=== PATIENT | female | born 1980 | race Two or more races ===

== ENCOUNTER 2017-04-17 21:16 | Emergency (ER) | payer OTHER ==
--- NOTE | 2017-04-17 21:35 | ED Physician Documentation ---
PD HPI ABD PAIN - Stated complaint Stated Complaint: PX IN FLANK/BACK/SOA/VOM - Chief complaint Chief Complaint: Abd Pain - History obtained from History obtained from: Patient - History of Present Illness Timing - onset: How many minutes ago (30), Today Timing - duration: Minutes (30) Timing - details: Abrupt onset, Still present Quality: Aching, Sharp, Pain Location: RUQ, Epigastric Radiation: Lower back Improved by: No: Eating (she had dinner soon after onset of the pain and it did not change) Associated symptoms: Nausea, Vomiting (couple of times). No: Fever, Hematemesis , Diarrhea, Weight loss Similar symptoms before: Has not had sx before Recently seen: Not recently seen Review of Systems Constitutional: denies: Fever, Chills, Myalgias Ears: denies: Drainage/discharge Nose: denies: Rhinorrhea / runny nose, Congestion Throat: denies: Sore throat Cardiac: denies: Chest pain / pressure, Palpitations Respiratory: denies: Cough GI: reports: Abdominal Pain, Nausea, Vomiting. denies: Diarrhea : denies: Dysuria, Frequency Skin: denies: Rash, Lesions Neurologic: reports: Generalized weakness. 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 - Past Surgical History Past Surgical History: No - Present Medications Home Medications: Ambulatory Orders Medication Instructions Recorded Confirmed Norethindrone-Ethinyl Estrad 1 each PO DAILY #1 packet 04/06/15 [[facility]] Ondansetron Odt [Zofran] 4 mg TL Q6H PRN #10 tablet 04/06/15 metFORMIN [Glucophage] 1 tab DAILY 04/06/15 04/06/15 Docusate Sodium 100 mg PO DAILY #15 capsule 04/18/17 HYDROcod/ACETAM 5/325 [[place] 5/325] 1 tab PO Q6H PRN #15 tablet 04/18/17 - Allergies Allergies/Adverse Reactions: Allergies Allergy/AdvReac Type Severity Reaction Status Date / Time No Known Drug Allergies Allergy Verified 04/06/15 14:14 - Social History Does the pt smoke?: No Smoking Status: Never smoker Does the pt drink ETOH?: Yes Does the pt have substance abuse?: No - Family History Family history: denies: Aortic aneursym, Aortic dissection PD ED PE NORMAL - Vitals Vital signs reviewed: Yes - General General: Alert and oriented X 3, Well developed/nourished, Other (appears in considerable pain RUQ/epigastric pain.) - HEENT HEENT: PERRL, Pharynx benign - Neck Neck: Supple, no meningeal sign, No adenopathy - Cardiac Cardiac: RRR, No murmur - Respiratory Respiratory: Clear bilaterally - Abdomen Abdomen: Soft, Non distended, No organomegaly, Other (tender epigatric to RUQ area, with guarding and percussion tenderness. ). No: Normal bowel sounds ( slightly increased) - Female Female : Deferred - Rectal Rectal: Deferred - Back Back: No CVA TTP - Derm Derm: Normal color, Warm and dry, No rash - Extremities Extremities: No tenderness to palpate, Normal ROM s pain - Neuro Neuro: Alert and oriented X 3, No motor deficit, Normal speech - Psych Psych: Normal mood Results - Vitals Vitals: Vital Signs - 24 hr 04/17/17 04/17/17 04/17/17 21:25 21:41 23:05 Temperature 36.9 C Heart Rate 68 64 69 Respiratory 18 18 18 Rate Blood Pressure 111/69 107/68 117/54 L O2 Saturation 99 99 98 04/18/17 02:10 Temperature 36.4 C L Heart Rate 61 Respiratory 18 Rate Blood Pressure 102/64 O2 Saturation 98 Oxygen O2 Source Room air - Labs Labs: Laboratory Tests 04/17/17 04/17/17 04/17/17 21:42 21:42 22:06 WBC 14.4 H RBC 4.60 Hgb 13.1 Hct 40.5 MCV 88.0 MCH 28.4 MCHC 32.3 RDW 13.4 Plt Count 301 MPV 9.8 Neut # 9.7 H Lymph # 3.3 Desha # 0.7 Eos # 0.6 Baso # 0.1 Absolute Nucleated RBC 0.00 Nucleated RBC % 0.0 Sodium 137 Potassium 3.8 Chloride 105 Carbon Dioxide 22 Anion Gap 10.0 BUN 15 Creatinine 0.5 Estimated GFR (MDRD) 141 Glucose 140 H Calcium 9.3 Total Bilirubin 0.4 AST 26 ALT 43 Alkaline Phosphatase 104 Total Protein 8.0 Albumin 4.6 Globulin 3.4 Albumin/Globulin Ratio 1.4 Lipase 35 Urine Color YELLOW Urine Clarity CLEAR Urine pH 5.5 Ur Specific [place] >=1.030 H Urine Protein NEGATIVE Urine Glucose (UA) NEGATIVE Urine Ketones TRACE Urine Occult Blood LARGE H Urine Nitrite NEGATIVE Urine Bilirubin NEGATIVE Urine Urobilinogen 0.2 (NORMAL) Ur Leukocyte Esterase NEGATIVE Urine RBC 11-25 H Urine WBC 0-3 Ur Squamous Epith Cells MOD Squamous H Urine Bacteria Few Urine Mucus Marked Strands Ur Microscopic Review INDICATED Urine Culture Comments NOT INDICATED - Rads (name of study) abd RUQ U/S Radiology: Prelim report reviewed (gallbladder polyp, but no stones, normal CBD and wall thickness. ) abd CT Radiology: Prelim report reviewed (no acute process seen), EMP read contemporaneously PD MEDICAL DECISION MAKING - ED course Complexity details: reviewed results, considered differential (no obvious cause based on labs and imaging. Consider GB spasm without stones. She is feeling improved with pain meds here in ED. ), d/w patient Departure - Departure Disposition: 01 Home, Self Care Clinical Impression: Abdominal pain Qualifiers: Abdominal location: right upper quadrant Qualified Code(s): R10.11 - Right upper quadrant pain Condition: Stable Record reviewed to determine appropriate education?: Yes Instructions: ED Abdominal Pain Unkn Cause, ED Abdominal Pain Gallstone Poss Follow-Up: Keon Gamez DO [Primary Care Provider] - Prescriptions: Docusate Sodium 100 mg PO DAILY #15 capsule HYDROcod/ACETAM 5/325 [[place] 5/325] 1 tab PO Q6H PRN #15 tablet PRN Reason: Pain Comments: Your pain and location of it sounded likely to be a gallbladder spasm. The ultrasound appears normal enough. It is possible to have a gallbladder spasm and still appeared normal enough on ultrasound. Your CT scan did not show any other cause apparent. Your blood tests are normal as well with exception of slightly elevated white count that could suggest early infection. Use ondansetron if needed for nausea and Tylenol or hydrocodone if needed for pain. Use a daily stool softener for the next several days so you do not get constipated from the pain medicine. If you feel good into tomorrow and the next day without any continued pain then no follow-up is needed in particular. Follow-up with your primary care if persistent pain over the next couple of days or repeated episodes in the near future. This might suggest the need for other tests of the gallbladder. Return to the ER if worsening pain again, high fevers, bloody stool, repetitive vomiting, other concerns. Discharge Date/Time: 04/18/17 02:15
[2017-04-17] MEDS ORDERED: HYDROmorphone 1 MG/ML SYRINGE IVP STA ×2 (22:00→23:11)
[2017-04-17] MEDS ORDERED: SODIUM CHLORIDE 0.9% 1,000 ML IV ONE (22:00)
[2017-04-17] MEDS ORDERED: ONDANSETRON 4 MG/2 ML VIAL IVP STA (22:00)
[2017-04-17] MEDS ORDERED: MAG HYDROX/AL HYDROX/SIMETH 30 ML UDC PO STA (22:01)
[2017-04-17 22:08] LABS: BASOPHILS # (AUTO) 0.1 10^3/uL (0.0-0.1); BASOPHILS % (AUTO) 0.7 %; EOSINOPHILS # (AUTO) 0.6 10^3/uL (0.0-0.7); EOSINOPHILS % (AUTO) 4.1 %; HGB - HEMOGLOBIN 13.1 g/dL (12.0-16.0); LYMPHOCYTES # (AUTO) 3.3 10^3/uL (1.5-3.5); LYMPHOCYTES % (AUTO) 23.1 %; MEAN CORPUSCULAR HEMOGLOBIN 28.4 pg (27.0-31.0); MEAN CORPUSCULAR HGB CONC 32.3 g/dL (32.0-36.0); MEAN PLATELET VOLUME 9.8 fL (7.9-10.8); MONOCYTES # (AUTO) 0.7 10^3/uL (0.0-1.0); MONOCYTES % (AUTO) 4.5 %; NEUTROPHILS # (AUTO) 9.7 10^3/uL (1.5-6.6); NEUTROPHILS % (AUTO) 67.6 %; PLT - PLATELET COUNT 301 10^3/uL (130-450); RED CELL DISTRIBUTION WIDTH 13.4 % (12.0-15.0); WHITE BLOOD COUNT 14.4 x10^3/uL (4.8-10.8)
[2017-04-17 22:14] LABS: BILIRUBIN,URINE NEGATIVE (NEGATIVE); GLUCOSE, URINE (UA) NEGATIVE (NEGATIVE); KETONES,URINE (UA) TRACE mg/dL (NEGATIVE); LEUKOCYTE ESTERASE, URINE NEGATIVE (NEGATIVE); NITRITE,URINE NEGATIVE (NEGATIVE); OCCULT BLOOD,URINE LARGE (NEGATIVE); PH,URINE 5.5 PH (5.0-7.5); PROTEIN,URINE NEGATIVE (NEGATIVE); UROBILINOGEN,URINE 0.2 (NORMAL) E.U./dL (NORMAL)
[2017-04-17 22:15] LABS: ALBUMIN 4.6 g/dL (3.2-5.5); ALBUMIN/GLOBULIN RATIO 1.4 (1.0-2.2); BILIRUBIN,TOTAL 0.4 mg/dL (0.2-1.0); CALCIUM 9.3 mg/dL (8.5-10.3); CREATININE 0.5 mg/dL (0.4-1.0)
[2017-04-17 22:29] LABS: CLARITY,URINE CLEAR (CLEAR)
[2017-04-17 22:30] LABS: BACTERIA,URINE Few /HPF (None Seen); MUCUS,URINE Marked Strands; SQUAMOUS EPITHELIAL CELL,UR MOD Squamous (<= Few)
[2017-04-17] MEDS ORDERED: KETOROLAC 60 MG/2 ML VIAL IVP STA (23:11)
--- NOTE | 2017-04-17 23:35 | Ultrasound Preliminary Report ---
Exam: US ABDOMEN LIMITED IMPRESSION: 1. Possible gallbladder polyp. No shadowing gallstones or cholecystitis identified. 2. No biliary dilatation. 3. Enlarged fatty liver. [facility] SITE ID: [id number]
--- NOTE | 2017-04-17 23:36 | Ultrasound Report ---
EXAM: ABDOMEN ULTRASOUND LIMITED, RUQ EXAM DATE: 04/17/2017 11:24 PM. CLINICAL HISTORY: RUQ pain onset 3-4 hours ago. COMPARISON: None. TECHNIQUE: Real-time scanning was performed with static images obtained. FINDINGS: Liver: Echogenic and echodense. 20.6 cm. Main portal vein flow: Hepatopetal. Gallbladder: Wall thickness is normal at 1.4 mm. No focal tenderness over the gallbladder. Patient gooden d been medicated. Echogenic nonmobile non-shadowing focus measuring 5.8 x 6.7 mm which could be adher ent sludge ball or polyp. Biliary System: CBD measures 2.7 mm. No intrahepatic or extrahepatic ductal dilatation. Other: Right kidney measures 12.5 cm and appears normal. Inferior vena cava is patent. Visualized por tions of the pancreas are unremarkable. IMPRESSION: 1. Possible gallbladder polyp. No shadowing gallstones or cholecystitis identified. 2. No biliary dilatation. 3. Enlarged fatty liver. [facility] Referring Provider Line: [phone] SITE ID: [id number]
[2017-04-18] MEDS ORDERED: IOPAMIDOL-300 100 ML VIAL ONE (00:04)
[2017-04-18] MEDS ORDERED: IOPAMIDOL-300 100 ML VIAL IVP ONE (00:28)
--- NOTE | 2017-04-18 01:02 | CT Preliminary Report ---
Exam: CT ABDOMEN/PELVIS W/ IMPRESSION: 1. Enlarged fatty liver. 2. Appendix appears normal. No acute inflammatory or obstructive process seen in the abdomen or pelvi s. 3. Mild bibasilar atelectasis or less likely infiltrate. [facility] SITE ID: [id number]
--- NOTE | 2017-04-18 01:02 | CT Report ---
EXAM: CT ABDOMEN AND PELVIS EXAM DATE: 04/18/2017 12:41 AM. CLINICAL HISTORY: Right sided abdominal pain. COMPARISONS: Ultrasound, 04/17/2017. TECHNIQUE: Routine helical CT imaging was performed through the abdomen and pelvis. IV contrast: 100M L ISOVUE 300. Enteric contrast: No. Reconstructions: Coronal and sagittal. In accordance with CT protocol optimization, one or more of the following dose reduction techniques w ere utilized for this exam: automated exposure control, adjustment of mA and/or KV based on patient s ize, or use of iterative reconstructive technique. FINDINGS: Lung Bases: Mild bibasilar atelectasis or infiltrate. Liver: Enlarged at 21 cm. Fatty infiltration. Gallbladder/Bile Ducts: Unremarkable. Spleen: Normal. Pancreas: Normal. Adrenal Glands: Normal. Kidneys: Normal. No masses or hydronephrosis. Peritoneal Cavity/Bowel: No bowel obstruction seen. No diverticulitis. No lymphadenopathy. No free ai r or free fluid. Appendix appears normal. Pelvic Organs: Normal. The bladder and visualized pelvic organs are within normal limits. Vasculature: No aneurysms or other significant abnormality. Bones: No significant abnormality. Other: None. IMPRESSION: 1. Enlarged fatty liver. 2. Appendix appears normal. No acute inflammatory or obstructive process seen in the abdomen or pelvi s. 3. Mild bibasilar atelectasis or less likely infiltrate. [facility] Referring Provider Line: [phone] SITE ID: [id number]
[2017-04-18] MEDS ORDERED: ONDANSETRON 4 MG/2 ML VIAL IVP STA (01:44)
[2017-04-18] MEDS ORDERED: HYDROcod/ACET 5/325 Prepack 6 PO STA (01:44)
[2017-04-18] MEDS ORDERED: ONDANSETRON ODT 4 MG Prepack 2 TL PRN (01:44)
[2017-04-18] MEDS ORDERED: DOCUSATE SODIUM 100 MG CAPSULE PO STA (01:52)
[2017-04-18 02:15] VITALS: BP 102/64
== END 2017-04-18 02:15 | disposition home or self-care (01) ==
LOC: ED 21:16
DX: R10.11 Right upper quadrant pain (principal); E11.9 Type 2 diabetes mellitus without complications; Z79.84 Long term (current) use of oral hypoglycemic drugs
CPT/HCPCS: 36415; 74177; 76705; 80053; 81001; 83690; 85025; 93005; 96374; 96376; 99283; 99284; A9270; J1170; Q9967; 81003; 87086

== ENCOUNTER 2017-04-29 08:48 | Outpatient (CLI) | payer OTHER ==
[2017-04-29] MEDS ORDERED: SINCALIDE 5 MCG VIAL ONE (11:41)
[2017-04-29] MEDS: SINCALIDE 1.7 MCG in SODIUM CHLORIDE 0.9% 50 ML IV ONE (14:11)
--- NOTE | 2017-04-29 14:40 | Nuclear Medicine Report ---
EXAM: HEPATOBILIARY SCAN WITH CCK/KINEVAC ADMINISTRATION EXAM DATE: 04/29/2017 09:30 AM. CLINICAL HISTORY: Abdominal pain COMPARISON: 04/18/2017 CT, 04/17/2017 ultrasound. TECHNIQUE: Following the intravenous administration of 5.1 mCi of Tc99m Mebrofenin, a hepatobiliary s can was done centered on the liver and gallbladder in multiple sequential images and projections. Following the intravenous administration of 1.7 mcg of CCK/ Kinevac over the course of approximately 60 minutes, dynamic imaging was done and the gallbladder ejection fraction was calculated. FINDINGS: Normal extraction of tracer from the blood pool indicating normal hepatocellular function. The liver size and shape is grossly within normal limits. Appearance of tracer in the biliary tree as early as 10 minutes, within normal limits. Appearance of tracer in the gallbladder as early as 10 minutes, within normal limits, with good progr ession of filling throughout the remainder of the initial hour. Appearance of tracer in the small bowel following CCK administration. With CCK administration, the gallbladder demonstrates an effective contraction. The gallbladder eject ion fraction is calculated to be 70%, well above the lower limit of normal of 38% for a 60-minute inj ection. No evidence of enteric reflux into the stomach. No significant collection of tracer remaining in the common bile duct by the end of the study. IMPRESSION: 1. Patent cystic duct. 2. Patent common bile duct. 3. Negative for acute or chronic cholecystitis. 4. No enterogastric bile reflux. 5. Gallbladder ejection fraction of 70%. [facility] Referring Provider Line: [phone] SITE ID: [id number]
== END 2017-04-29 08:49 | disposition home or self-care (01) ==
LOC: DI 08:48
DX: R10.9 Unspecified abdominal pain (principal)
CPT/HCPCS: 78227; A9537; J7040

== ENCOUNTER 2017-08-30 17:03 | Emergency (ER) | payer OTHER ==
[2017-08-30 17:25] VITALS: BP 117/70
[2017-08-30] MEDS ORDERED: HYDROcod/ACETAM 5/325 MG TABLET PO STA (18:29)
--- NOTE | 2017-08-30 18:30 | ED Physician Documentation ---
PD HPI LOWER EXT INJURY - Stated complaint Stated Complaint: THIGH PX - Chief complaint Chief Complaint: Ext Problem - History obtained from History obtained from: Patient - History of Present Illness PD HPI LOW EXT INJURY LOCATION: Left, Other (thigh) Timing - details: Gradual onset Pain level max: 6 Pain level now: 5 Improved by: Rest Worsened by: Moving, Palpating - Additional information Additional information: Patient is a 36-year-old female who presents to the emergency department with a left thigh injury approximately 2 weeks ago while playing kickball. States that she was feeling better so she went and played another game today, reinjuring the left thigh and now having increasing pain on the anterior aspect of the thigh. Took Motrin without relief. 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 - Present Medications Home Medications: Ambulatory Orders Medication Instructions Recorded Confirmed metFORMIN [Glucophage] 500 tab ORAL DAILY 04/06/15 08/30/17 Hydrocodone/Acetaminophen 1 - 2 each PO Q6H PRN #14 tablet 08/30/17 [Hydrocodon-Acetaminophen 5-325] - Allergies Allergies/Adverse Reactions: Allergies Allergy/AdvReac Type Severity Reaction Status Date / Time No Known Drug Allergies Allergy Verified 08/30/17 17:25 - Social History Does the pt smoke?: No Smoking Status: Never smoker Does the pt drink ETOH?: Yes ETOH Use: Wine Does the pt have substance abuse?: No - Immunizations Immunizations are current?: Yes - POLST Patient has POLST: No PD ED PE NORMAL - Vitals Vital signs reviewed: Yes - General General: Alert and oriented X 3, No acute distress - Derm Derm: Warm and dry - Extremities Extremities: Other (L thigh, TTP over the L mid thigh, anterior. Mild ecchymosis. /No bony tenderness over the leg, knee or hip. No evidence of tendon rupture or tear. NVI. ) - Neuro Neuro: Alert and oriented X 3 Results - Vitals Vitals: Vital Signs - 24 hr 08/30/17 17:22 Temperature 36.7 C Heart Rate 72 Respiratory 99 H Rate Blood Pressure 117/70 O2 Saturation 99 Oxygen O2 Source Room air PD MEDICAL DECISION MAKING - ED course Complexity details: considered differential, d/w patient ED course: Patient is a 36-year-old female with what appears to be a left thigh strain. Placed in an Ata bandage for compression. Given crutches as well. Will prescribe a small amount of pain medication for home. She is well-appearing, nontoxic. Afebrile. No evidence of tendon rupture at the quadriceps tendon insertion at the patella or any hip flexor rupture up near the pelvis. No bony tenderness. No evidence of femur injury. Patient counseled regarding signs and symptoms for which I believe and urgent re-evaluation would be necessary. Patient with good understanding of and agreement to plan and is comfortable going home at this time This document was made in part using voice recognition software. While efforts are made to proofread this document, sound alike and grammatical errors may occur. - Sepsis Event Vital Signs: Vital Signs - 24 hr 08/30/17 17:22 Temperature 36.7 C Heart Rate 72 Respiratory 99 H Rate Blood Pressure 117/70 O2 Saturation 99 Oxygen O2 Source Room air Departure - Departure Disposition: Home, Self Care Clinical Impression: Quadriceps muscle strain Qualifiers: Encounter type: initial encounter Laterality: left Qualified Code(s): S76.112A - Strain of left quadriceps muscle, fascia and tendon, initial encounter Condition: Good Instructions: ED Strain Muscle Ext Follow-Up: Keon Gamez DO [Primary Care Provider] - Within 1 week Prescriptions: Hydrocodone/Acetaminophen [Hydrocodon-Acetaminophen 5-325] 1 - 2 each PO Q6H PRN #14 tablet PRN Reason: pain Comments: Return if you worsen. Apply ice today. You can start using heat tomorrow. Return if you worsen. Make sure to follow-up with your doctor as you may need physical therapy to help you recover from this. Do not drink alcohol or drive while on narcotic pain medicine. Note that many narcotic pain relievers also contain tylenol/acetaminophen. Please ensure that your total dose of acetaminophen from all sources does not exceed 3 grams (3000mg) per day. You may constipated on this medication, take a stool softener such as "Colace" twice a day while you are on it. Also recommend a [id number]-[id number] laxative such as senna or MiraLAX any day that you do not have a bowel movement. If you received narcotic pain medication in the emergency department, do not drive or operate machinery for the next 24 hours. Forms: Activity restrictions Discharge Date/Time: 08/30/17 18:43
== END 2017-08-30 18:43 | disposition home or self-care (01) ==
LOC: ED 17:03
DX: S76.112A Strain of left quadriceps muscle, fascia and tendon, initial encounter (principal); X50.9XXA Other and unspecified overexertion or strenuous movements or postures, initial encounter; Y93.6A Activity, physical games generally associated with school recess, summer camp and children; E11.9 Type 2 diabetes mellitus without complications; Z79.84 Long term (current) use of oral hypoglycemic drugs
CPT/HCPCS: 99283; A9270